=== PATIENT | male | born 1990 | race Caucasian/White ===

== ENCOUNTER → 2016-12-03 | Outpatient (CLI) | payer OTHER ==
--- NOTE | 2016-12-03 16:27 | DX ---
Right Fourth Finger 3 Views History: Flag football injury, pain. Comparison: None available. Findings: No fractures identified. Alignment is normal. Bone mineralization is normal. There is no si gnificant degenerative change. There is soft tissue swelling at the proximal interphalangeal joint. Impression: No acute osseous findings.
== END ==
LOC: FIMAGING 13:20
PROVIDERS: ATTEND Nurse Practitioner
DX: S69.91XA Unspecified injury of right wrist, hand and finger(s), initial encounter (principal)